=== PATIENT | male | born 1940 | race Caucasian/White ===

== ENCOUNTER → 2016-10-18 | Outpatient (CLI) | payer OTHER, BC ==
[~2016-10-18] MED LIST: ACYCLOVIR400 MG PO; ADVIL,NUPRIN,M200 MG PO; ADVIL200 MG PO; ALLOPURINOL300 MG PO; ASPIR-LOW81 MG PO; ATORVASTATIN CA20 MG PO; CIPRO750 MG PO; CLARITIN,ALAVAR10 MG PO; CLONAZEPAM0.5 MG PO; CLONIDINE HCL0.1 MG PO; COMPAZINE10 MG PO; CONSTULOSE10 GM/15 M PO; DELTASONE20 M1 PO; DOCUSATE SODIU100 MG PO; FINASTERIDE5 MG PO; FLOMAX0.4 MG PO; HYDROMORPHONE HC2 MG PO; IBUPROFEN200 M1 PO; KLOR-CON M2020 MEQ PO; LIPITOR20 MG PO; LIPITOR5 MG PO; LISINOPRIL20 MG PO; MUCINEX600 MG PO; NAPROXEN500 MG PO; POTASSIUM CHLO10 ME3 PO; PREDNISONE2.5 MG PO; PREDNISONE20 MG PO; PROCHLORPERAZIN10 MG PO; PROMETHAZI6.25 MG/5 PO; PROSCAR5 MG PO; REGULOID0.52 GM PO; SENNA CONCENTR8.6 MG PO; SENNA8.6 MG PO; XARELTO15 MG PO; XARELTO20 MG PO; ZYDELIG150 MG PO
== END | disposition home or self-care (01) ==
LOC: OPR 07:28 → EDSTATUS 07:30
PROC: 3E0L3GC Introduction of Other Therapeutic Substance into Pleural Cavity, Percutaneous Approach (ICD-10-PCS; principal; 2016-10-18)
DX: J90 Pleural effusion, not elsewhere classified (principal); C85.90 Non-Hodgkin lymphoma, unspecified, unspecified site; K59.09 Other constipation; M25.512 Pain in left shoulder
CPT/HCPCS: J3010; J7050

== ENCOUNTER → 2016-11-03 | Outpatient (CLI) | payer OTHER, BC | END | disposition home or self-care (01) | LOC: OPR 11-02 09:00 → EDSTATUS 09:00 → OPR 09:00 | DX: C85.90 Non-Hodgkin lymphoma, unspecified, unspecified site (principal); J90 Pleural effusion, not elsewhere classified; Z87.891 Personal history of nicotine dependence | CPT/HCPCS: J3010 ==

== ENCOUNTER 2017-01-01 10:12 | Inpatient (IN) | payer OTHER, BC ==
[~2017-01-01] VITALS: Ht 177.8 cm; Wt 84.0 kg
[2017-01-01 12:14] LABS: INFLUENZA A VIRAL ANTIGEN NEGATIVE; INFLUENZA B VIRAL ANTIGEN NEGATIVE
[2017-01-01 12:22] LABS: HEMATOCRIT 28.6 % (38.0-50.0); MCH 28.7 PG (29.0-34.0); MCHC 33.9 G/DL (30.0-36.0); MCV 84.6 FL (86-99); MEAN PLAT.VOLUME 10.3 uM^3 (9.0-12.4); PLATELET COUNT 179 K/uL (156-360); RBC DIS.WIDTH-CV 13.8 % (11.8-14.6); RBC DIS.WIDTH-SD 42.9 % (39-53); RED BLOOD COUNT 3.38 M/uL (4.00-5.50)
[2017-01-01 12:23] LABS: CHLORIDE 104 mEq/L (99-109); POTASSIUM 3.2 mEq/L (3.7-5.4); SODIUM 135 mEq/L (136-147)
[2017-01-01 12:25] LABS: GLUCOSE 101 mg/dL (70-99)
[2017-01-01 12:26] LABS: ANION GAP 12 MEQ/L (2-14)
[2017-01-01 12:27] LABS: TOTAL BILIRUBIN 1.2 mg/dL (0.0-1.0)
[2017-01-01 12:29] LABS: ALKALINE PHOSPHATASE 33 IU/L (3-129); GFR ESTIMATE (CALCULATED) 25 mL/min/
[2017-01-01 12:30] LABS: UREA NITROGEN (BUN) 27 mg/dL (9-23)
[2017-01-01 12:32] LABS: ADD MIUA? YES; BILIRUBIN NEGATIVE; BLOOD SMALL; COLOR YELLOW ((YELLOW)); GLUCOSE (STRIP) 50; KETONES NEGATIVE; LEUKOCYTES NEGATIVE; NITRITE NEGATIVE; PROTEIN (STRIP) 100; SPECIFIC GRAVITY 1.016 (1.000-1.030); UROBILINOGEN 0.2 MG/DL (0.2-1.0)
[2017-01-01 12:45] LABS: BACTERIA RARE /HPF; CALCIUM OXALATE CRYSTALS 1+ /HPF; EPITHELIAL CELLS RARE /HPF; MUCUS TRACE /LPF; RED BLOOD CELLS 0-5 /HPF (0-5); UCUL ADDED? NO; WHITE BLOOD CELLS 0-5 /HPF (0-5)
[2017-01-01 12:47] LABS: MAGNESIUM 1.8 mg/dL (1.3-2.7)
[2017-01-01 13:53] LABS: WHITE BLOOD COUNT 0.8 K/uL (4.1-10.2)
[2017-01-01 18:11] VITALS: BP 182/80
[2017-01-01 19:29] VITALS: BP 154/74
[2017-01-01 22:25] VITALS: BP 188/80
[2017-01-02] VITALS (11 sets, daily range): BP systolic 138–176; BP diastolic 64–78
[2017-01-02 07:12] LABS: OVALOCYTES 1+; PLAT.SUFFICIENCY ADEQUATE; POIKILOCYTOSIS 1+; POLYCHROMASIA 1+
[2017-01-02 07:17] LABS: ANION GAP 10 MEQ/L (2-14); CHLORIDE 108 MEQ/L (99-109); GFR ESTIMATE (CALCULATED) 26 mL/min/; GLUCOSE 84 mg/dL (70-99); POTASSIUM 3.6 MEQ/L (3.7-5.4); SAMPLE HEMOLYSIS CHECK 0; SAMPLE ICTERIC CHECK 0; SAMPLE LIPEMIA CHECK 0; SODIUM 140 MEQ/L (136-147); UREA NITROGEN (BUN) 27 mg/dL (9-23)
[2017-01-02 07:20] LABS: ALKALINE PHOSPHATASE 29 IU/L (3-129); ANION GAP 9 MEQ/L (2-14); CHLORIDE 109 MEQ/L (99-109); GFR ESTIMATE (CALCULATED) 26 mL/min/; GLUCOSE 83 mg/dL (70-99); POTASSIUM 3.5 MEQ/L (3.7-5.4); SAMPLE HEMOLYSIS CHECK 0; SAMPLE ICTERIC CHECK 0; SAMPLE LIPEMIA CHECK 0; SODIUM 140 MEQ/L (136-147); TOTAL BILIRUBIN 0.8 MG/DL (0.0-1.0); UREA NITROGEN (BUN) 27 mg/dL (9-23)
[2017-01-02 08:54] LABS: ABS NEUTROPHIL COUNT 0.2; ATYPICAL LYMPHOCYTE 2.4 %; BAND NEUTROPHILS 4.8 % (0-8.0); EOSINOPHIL ABS CT 0.2; EOSINOPHILS 16.9 % (0-5.0); INSTRUMENT ABS NEUTROPHIL CT 0.1 K/uL; LYMPHOCYTES 21.7 % (15.0-45.0); MCH 28.9 PG (29.0-34.0); MCHC 33.3 G/DL (30.0-36.0); MCV 86.6 FL (86-99); MEAN PLAT.VOLUME 9.8 uM^3 (9.0-12.4); PLATELET COUNT 153 K/uL (156-360); RBC DIS.WIDTH-SD 43.8 % (39-53); RED BLOOD COUNT 2.77 M/uL (4.00-5.50); SEG.NEUTROPHILS 10.8 % (46.0-76.0); WHITE BLOOD COUNT 1.4 K/uL (4.1-10.2)
[2017-01-02 15:15] LABS: ANION GAP 9 MEQ/L (2-14); CHLORIDE 106 MEQ/L (99-109); POTASSIUM 3.3 MEQ/L (3.7-5.4); SAMPLE HEMOLYSIS CHECK 0; SAMPLE ICTERIC CHECK 0; SAMPLE LIPEMIA CHECK 0; SODIUM 137 MEQ/L (136-147)
[2017-01-02 15:21] LABS: GFR ESTIMATE (CALCULATED) 27 mL/min/; GLUCOSE 109 mg/dL (70-99); UREA NITROGEN (BUN) 27 mg/dL (9-23); URIC ACID 4.5 mg/dL (3.1-9.2)
[2017-01-03] VITALS (7 sets, daily range): BP systolic 132–190; BP diastolic 62–89
[2017-01-03 01:06] LABS: TROP-I INTERPRETATION NEGATIVE; TROPONIN-I < 0.01 ng/mL (0.0-0.30)
[2017-01-03 06:28] LABS: TROP-I INTERPRETATION NEGATIVE; TROPONIN-I 0.02 ng/mL (0.0-0.30)
[2017-01-03 06:36] LABS: ALKALINE PHOSPHATASE 32 IU/L (3-129); ANION GAP 11 MEQ/L (2-14); CHLORIDE 108 MEQ/L (99-109); GFR ESTIMATE (CALCULATED) 24 mL/min/; GLUCOSE 106 mg/dL (70-99); POTASSIUM 3.6 MEQ/L (3.7-5.4); SAMPLE HEMOLYSIS CHECK 0; SAMPLE ICTERIC CHECK 0; SAMPLE LIPEMIA CHECK 0; SODIUM 141 MEQ/L (136-147); TOTAL BILIRUBIN 0.8 MG/DL (0.0-1.0); UREA NITROGEN (BUN) 27 mg/dL (9-23)
[2017-01-03 06:36] LABS: ANION GAP 9 MEQ/L (2-14); CHLORIDE 108 MEQ/L (99-109); GFR ESTIMATE (CALCULATED) 25 mL/min/; GLUCOSE 105 mg/dL (70-99); POTASSIUM 3.6 MEQ/L (3.7-5.4); SAMPLE HEMOLYSIS CHECK 0; SAMPLE ICTERIC CHECK 0; SAMPLE LIPEMIA CHECK 0; SODIUM 140 MEQ/L (136-147); UREA NITROGEN (BUN) 27 mg/dL (9-23)
[2017-01-03 06:41] LABS: HEMATOCRIT 29.8 % (38.0-50.0); MCH 27.8 PG (29.0-34.0); MCHC 32.9 G/DL (30.0-36.0); MCV 84.7 FL (86-99); MEAN PLAT.VOLUME 9.7 uM^3 (9.0-12.4); PLATELET COUNT 159 K/uL (156-360); RBC DIS.WIDTH-CV 14.6 % (11.8-14.6); RBC DIS.WIDTH-SD 44.7 % (39-53)
[2017-01-03 07:13] LABS: RED BLOOD COUNT 3.52 M/uL (4.00-5.50); WHITE BLOOD COUNT 2.1 K/uL (4.1-10.2)
[2017-01-03 07:18] LABS: ABS NEUTROPHIL COUNT 0.7; ANISOCYTOSIS 1+; ATYPICAL LYMPHOCYTE 7.5 %; BAND NEUTROPHILS 1.3 % (0-8.0); BURR CELLS 1+; EOSINOPHIL ABS CT 0.3; EOSINOPHILS 12.5 % (0-5.0); INSTRUMENT ABS NEUTROPHIL CT 0.4 K/uL; LYMPHOCYTES 16.2 % (15.0-45.0); METAMYELOCYTES 2.5 %; MICROCYTOSIS 1+; PLAT.SUFFICIENCY ADEQUATE; POIKILOCYTOSIS 2+; TEAR DROP CELLS 1+
[2017-01-03 07:34] LABS: SEG.NEUTROPHILS 32.5 % (46.0-76.0)
[2017-01-03 12:35] LABS: TROP-I INTERPRETATION NEGATIVE; TROPONIN-I < 0.01 ng/mL (0.0-0.30)
[2017-01-04 03:26] VITALS: BP 135/62
[2017-01-04 06:47] LABS: ANION GAP 8 MEQ/L (2-14); CHLORIDE 105 MEQ/L (99-109); GFR ESTIMATE (CALCULATED) 24 mL/min/; GLUCOSE 97 mg/dL (70-99); POTASSIUM 3.5 MEQ/L (3.7-5.4); SAMPLE HEMOLYSIS CHECK 0; SAMPLE ICTERIC CHECK 0; SAMPLE LIPEMIA CHECK 0; SODIUM 138 MEQ/L (136-147); UREA NITROGEN (BUN) 23 mg/dL (9-23)
[2017-01-04 06:48] LABS: ALKALINE PHOSPHATASE 35 IU/L (3-129); ANION GAP 8 MEQ/L (2-14); CHLORIDE 105 MEQ/L (99-109); GFR ESTIMATE (CALCULATED) 24 mL/min/; GLUCOSE 95 mg/dL (70-99); POTASSIUM 3.5 MEQ/L (3.7-5.4); SAMPLE HEMOLYSIS CHECK 0; SAMPLE ICTERIC CHECK 0; SAMPLE LIPEMIA CHECK 0; SODIUM 138 MEQ/L (136-147); TOTAL BILIRUBIN 0.7 MG/DL (0.0-1.0); UREA NITROGEN (BUN) 24 mg/dL (9-23)
[2017-01-04 06:51] LABS: HEMATOCRIT 30.1 % (38.0-50.0); MCH 28.3 PG (29.0-34.0); MCHC 33.6 G/DL (30.0-36.0); MCV 84.3 FL (86-99); MEAN PLAT.VOLUME 10.2 uM^3 (9.0-12.4); PLATELET COUNT 164 K/uL (156-360); RBC DIS.WIDTH-CV 14.6 % (11.8-14.6); RED BLOOD COUNT 3.57 M/uL (4.00-5.50)
[2017-01-04 06:54] LABS: WHITE BLOOD COUNT 4.9 K/uL (4.1-10.2)
[2017-01-04 07:20] VITALS: BP 117/56
[2017-01-04 07:31] LABS: ABS NEUTROPHIL COUNT 2.6; ANISOCYTOSIS 1+; BAND NEUTROPHILS 8.8 % (0-8.0); EOSINOPHIL ABS CT 0.3; EOSINOPHILS 7.1 % (0-5.0); INSTRUMENT ABS NEUTROPHIL CT 1.9 K/uL; LYMPHOCYTES 13.3 % (15.0-45.0); METAMYELOCYTES 0.9 %; MYELOCYTES 2.6 %; OVALOCYTES 1+; PLAT.SUFFICIENCY ADEQUATE; POIKILOCYTOSIS 1+; SEG.NEUTROPHILS 44.3 % (46.0-76.0)
[2017-01-04 11:04] LABS: UR CREATININE CONCENTRATION 43.2 MG/DL
[2017-01-04 12:27] VITALS: BP 148/67
[2017-01-04 17:08] VITALS: BP 146/65
[2017-01-04 20:02] VITALS: BP 111/61
[2017-01-04 23:49] VITALS: BP 122/68
[2017-01-05 07:24] LABS: HEMATOCRIT 30.4 % (38.0-50.0); MCH 27.6 PG (29.0-34.0); MCHC 32.6 G/DL (30.0-36.0); MCV 84.7 FL (86-99); NRBC (%) 0.3 /100 WBC (0-0); RBC DIS.WIDTH-CV 14.8 % (11.8-14.6); RBC DIS.WIDTH-SD 45.7 % (39-53); RED BLOOD COUNT 3.59 M/uL (4.00-5.50)
[2017-01-05 07:25] LABS: WHITE BLOOD COUNT 6.7 K/uL (4.1-10.2)
[2017-01-05 07:30] LABS: ANION GAP 11 MEQ/L (2-14); CHLORIDE 103 MEQ/L (99-109); GFR ESTIMATE (CALCULATED) 24 mL/min/; GLUCOSE 132 mg/dL (70-99); POTASSIUM 4.1 MEQ/L (3.7-5.4); SAMPLE HEMOLYSIS CHECK 0; SAMPLE ICTERIC CHECK 0; SAMPLE LIPEMIA CHECK 0; SODIUM 138 MEQ/L (136-147); UREA NITROGEN (BUN) 25 mg/dL (9-23)
[2017-01-05 07:31] VITALS: BP 143/66
[2017-01-05 07:40] LABS: ALKALINE PHOSPHATASE 40 IU/L (3-129); ANION GAP 11 MEQ/L (2-14); CHLORIDE 103 MEQ/L (99-109); GFR ESTIMATE (CALCULATED) 24 mL/min/; GLUCOSE 131 mg/dL (70-99); POTASSIUM 4.1 MEQ/L (3.7-5.4); SAMPLE HEMOLYSIS CHECK 0; SAMPLE ICTERIC CHECK 0; SAMPLE LIPEMIA CHECK 0; SODIUM 138 MEQ/L (136-147); UREA NITROGEN (BUN) 25 mg/dL (9-23)
[2017-01-05 07:41] LABS: TOTAL BILIRUBIN 0.5 MG/DL (0.0-1.0)
[2017-01-05 07:50] LABS: ABS NEUTROPHIL COUNT 5.4; EOSINOPHIL ABS CT 0; INSTRUMENT ABS NEUTROPHIL CT 4.3 K/uL; MEAN PLAT.VOLUME 10.9 uM^3 (9.0-12.4); OVALOCYTES 1+; PLAT.SUFFICIENCY ADEQUATE; PLATELET COUNT 178 K/uL (156-360)
[2017-01-05 10:54] VITALS: BP 162/72
[2017-01-05 17:11] VITALS: BP 138/71
[2017-01-05 18:26] VITALS: BP 146/67
[2017-01-06] VITALS: BP 137/67
[2017-01-06 03:14] VITALS: BP 130/62
[2017-01-06 06:55] LABS: HEMATOCRIT 31.2 % (38.0-50.0); MCHC 32.4 G/DL (30.0-36.0); MCV 86.4 FL (86-99); MEAN PLAT.VOLUME 10.2 uM^3 (9.0-12.4); NRBC (%) 0.4 /100 WBC (0-0); PLATELET COUNT 178 K/uL (156-360); RBC DIS.WIDTH-SD 48.1 % (39-53); RED BLOOD COUNT 3.61 M/uL (4.00-5.50); WHITE BLOOD COUNT 8.5 K/uL (4.1-10.2)
[2017-01-06 07:02] LABS: ANION GAP 7 MEQ/L (2-14); CHLORIDE 103 MEQ/L (99-109); GFR ESTIMATE (CALCULATED) 24 mL/min/; GLUCOSE 108 mg/dL (70-99); POTASSIUM 3.9 MEQ/L (3.7-5.4); SAMPLE HEMOLYSIS CHECK 0; SAMPLE ICTERIC CHECK 0; SAMPLE LIPEMIA CHECK 0; SODIUM 140 MEQ/L (136-147); UREA NITROGEN (BUN) 29 mg/dL (9-23)
[2017-01-06 08:41] VITALS: BP 124/74
[2017-01-06 09:04] LABS: ABS NEUTROPHIL COUNT 5.5; ANISOCYTOSIS 1+; ATYPICAL LYMPHOCYTE 0.9 %; BAND NEUTROPHILS 2.7 % (0-8.0); EOSINOPHIL ABS CT 0.1; EOSINOPHILS 0.9 % (0-5.0); INSTRUMENT ABS NEUTROPHIL CT 4.9 K/uL; METAMYELOCYTES 6.3 %; MICROCYTOSIS 1+; OVALOCYTES 1+; PLAT.SUFFICIENCY ADEQUATE; POIKILOCYTOSIS 2+; SEG.NEUTROPHILS 62.5 % (46.0-76.0)
[2017-01-06] MEDS ORDERED: NIFEDIPINE ER30 MG PO (11:30)
[2017-01-06] MEDS ORDERED: FINASTERIDE5 MG PO (11:30)
[2017-01-06 12:05] VITALS: BP 127/60
[2017-01-06 16:24] LABS: UR CREATININE CONCENTRATION 46.3 MG/DL
[2017-01-08 21:53] LABS: Neutrophil Cytoplasmic Aby Negative (Negative)
== END 2017-01-06 16:06 | disposition home or self-care (01) | DRG 669 ==
LOC: EME → EDBD 10:12 → 5EAST 15:04 → EDOF 15:04 → 5EAST 17:54
PROVIDERS: Emergency Medicine; Family Medicine; Hospitalist; Internal Medicine; Internal Medicine Nephrology; Urology
DX: N13.2 Hydronephrosis with renal and ureteral calculous obstruction (principal); N17.9 Acute kidney failure, unspecified; R33.8 Other retention of urine; C85.90 Non-Hodgkin lymphoma, unspecified, unspecified site; E87.2 Acidosis; E87.1 Hypo-osmolality and hyponatremia; N40.1 Benign prostatic hyperplasia with lower urinary tract symptoms; E78.00 Pure hypercholesterolemia, unspecified; D70.9 Neutropenia, unspecified; R55 Syncope and collapse; E87.70 Fluid overload, unspecified; E86.0 Dehydration; I10 Essential (primary) hypertension; D64.9 Anemia, unspecified; E87.6 Hypokalemia; Z86.711 Personal history of pulmonary embolism; Z86.73 Personal history of transient ischemic attack (TIA), and cerebral infarction without residual deficits; K59.00 Constipation, unspecified
CPT/HCPCS: 71010; 74176; 74420; 76770; 80048; 80053; 80069; 81003; 81050; 82365 90; 82570; 83605; 83735; 83880; 84100; 84156; 84484; 84550; 85009; 85025; 85027; 86021 90; 86850; 86900; 86901; 86920; 87040; 87086; 87502; 93005; 93306; 99281; 99285; C1769; C1876; J1447; J1644; J1940; J3480; J7030; J7120; P9016

== ENCOUNTER 2017-02-16 14:05 | Inpatient (IN) | payer OTHER, BC ==
[~2017-02-16] VITALS: Ht 177.8 cm; Wt 79.7 kg
[~2017-02-16 14:05] MED LIST changes: +NIFEDIPINE ER30 MG PO
[2017-02-16] MEDS ORDERED: XARELTO20 MG PO (15:17)
[2017-02-16 16:36] LABS: HEMATOCRIT 24.4 % (38.0-50.0); MCH 28.6 PG (29.0-34.0); MCHC 33.2 G/DL (30.0-36.0); MCV 86.2 FL (86-99); MEAN PLAT.VOLUME 10.2 uM^3 (9.0-12.4); RBC DIS.WIDTH-CV 15.8 % (11.8-14.6); RBC DIS.WIDTH-SD 49.7 % (39-53)
[2017-02-16 16:48] LABS: PLATELET COUNT 158 K/uL (156-360); RED BLOOD COUNT 2.83 M/uL (4.00-5.50); WHITE BLOOD COUNT 2.7 K/uL (4.1-10.2)
[2017-02-16 16:49] LABS: CHLORIDE 104 mEq/L (99-109); POTASSIUM 3.7 mEq/L (3.7-5.4); SODIUM 133 mEq/L (136-147)
[2017-02-16 16:50] LABS: GLUCOSE 96 mg/dL (70-99)
[2017-02-16 16:52] LABS: ANION GAP 11 MEQ/L (2-14)
[2017-02-16 16:54] LABS: GFR ESTIMATE (CALCULATED) 23 mL/min/
[2017-02-16 16:56] LABS: UREA NITROGEN (BUN) 50 mg/dL (9-23)
[2017-02-16 17:42] LABS: ABS NEUTROPHIL COUNT 2.4; ANISOCYTOSIS 1+; BAND NEUTROPHILS 3.5 % (0-8.0); EOSINOPHIL ABS CT 0; EOSINOPHILS 0.9 % (0-5.0); HEMATOLOGY COMMENT 1 SN; INSTRUMENT ABS NEUTROPHIL CT 1.6 K/uL; LYMPHOCYTES 3.5 % (15.0-45.0); METAMYELOCYTES 1.8 %; OVALOCYTES 1+; PLAT.SUFFICIENCY ADEQUATE; POIKILOCYTOSIS 1+; SEG.NEUTROPHILS 86.8 % (46.0-76.0)
[2017-02-16] MEDS ORDERED: NIFEDIPINE ER30 MG PO (17:44)
[2017-02-16] MEDS ORDERED: FINASTERIDE5 MG PO (17:45)
[2017-02-16] MEDS ORDERED: DEXAMETHASO4 MG/1 ML IV (17:46)
[2017-02-16] MEDS ORDERED: ALOXI0.25 MG/5 IV (17:46)
[2017-02-16] MEDS ORDERED: DEXAMETHAS10 MG/1 M1 IV (17:47)
[2017-02-16] MEDS ORDERED: GEMCITABINE IV ×3 (17:49→18:06)
[2017-02-16] MEDS ORDERED: NEULASTA6 MG/0.6 M SC (17:54)
[2017-02-16] MEDS ORDERED: OXALIPLATI100 MG/20 IV (17:54)
[2017-02-16 20:05] VITALS: BP 141/65
[2017-02-16 21:25] VITALS: BP 142/65
[2017-02-16 21:40] VITALS: BP 133/63
[2017-02-16 22:25] VITALS: BP 129/64
[2017-02-16 23:24] VITALS: BP 145/65
[2017-02-16 23:49] VITALS: BP 145/65
[2017-02-17] VITALS (8 sets, daily range): BP systolic 100–121; BP diastolic 51–58
[2017-02-17 02:36] LABS: HEMATOCRIT 24.9 % (38.0-50.0); MCV 86.8 FL (86-99)
[2017-02-17 10:32] LABS: ALKALINE PHOSPHATASE 37 IU/L (3-129); ANION GAP 13 MEQ/L (2-14); CHLORIDE 109 MEQ/L (99-109); GFR ESTIMATE (CALCULATED) 25 mL/min/; GLUCOSE 111 mg/dL (70-99); POTASSIUM 3.6 MEQ/L (3.7-5.4); SAMPLE HEMOLYSIS CHECK 0; SAMPLE ICTERIC CHECK 0; SAMPLE LIPEMIA CHECK 0; SODIUM 139 MEQ/L (136-147); TOTAL BILIRUBIN 0.9 MG/DL (0.0-1.0); UREA NITROGEN (BUN) 43 mg/dL (9-23)
[2017-02-17 10:40] LABS: HEMATOCRIT 29.3 % (38.0-50.0); MCH 29.1 PG (29.0-34.0); MCHC 33.1 G/DL (30.0-36.0); MEAN PLAT.VOLUME 10.4 uM^3 (9.0-12.4); PLATELET COUNT 132 K/uL (156-360); RBC DIS.WIDTH-CV 15.6 % (11.8-14.6); RBC DIS.WIDTH-SD 49.8 % (39-53); RED BLOOD COUNT 3.33 M/uL (4.00-5.50)
[2017-02-17 14:37] LABS: ADD MIUA? YES; BILIRUBIN NEGATIVE; BLOOD MODERATE; COLOR AMBER ((YELLOW)); GLUCOSE (STRIP) 50; KETONES NEGATIVE; LEUKOCYTES LARGE; PROTEIN (STRIP) 100; SPECIFIC GRAVITY 1.013 (1.000-1.030); UROBILINOGEN 0.2 MG/DL (0.2-1.0)
[2017-02-17 14:57] LABS: RED BLOOD CELLS TNTC /HPF (0-5)
[2017-02-17 14:58] LABS: BACTERIA 4+ /HPF; EPITHELIAL CELLS NONE SEEN /HPF; MUCUS NONE SEEN /LPF; UCUL ADDED? YES
[2017-02-17 14:59] LABS: NITRITE POSITIVE
[2017-02-18 06:15] LABS: HEMATOCRIT 27.1 % (38.0-50.0); MCH 28.3 PG (29.0-34.0); MCHC 32.8 G/DL (30.0-36.0); MCV 86.3 FL (86-99); MEAN PLAT.VOLUME 10.5 uM^3 (9.0-12.4); PLATELET COUNT 112 K/uL (156-360); RBC DIS.WIDTH-CV 15.8 % (11.8-14.6); RBC DIS.WIDTH-SD 49.9 % (39-53); RED BLOOD COUNT 3.14 M/uL (4.00-5.50); WHITE BLOOD COUNT 2.5 K/uL (4.1-10.2)
[2017-02-18 06:29] LABS: ANION GAP 9 MEQ/L (2-14); CHLORIDE 106 MEQ/L (99-109); GFR ESTIMATE (CALCULATED) 26 mL/min/; GLUCOSE 95 mg/dL (70-99); POTASSIUM 3.5 MEQ/L (3.7-5.4); SAMPLE HEMOLYSIS CHECK 0; SAMPLE ICTERIC CHECK 0; SAMPLE LIPEMIA CHECK 0; SODIUM 135 MEQ/L (136-147); UREA NITROGEN (BUN) 37 mg/dL (9-23)
[2017-02-18 06:32] VITALS: BP 113/58
[2017-02-18 08:10] LABS: ABS NEUTROPHIL COUNT 2.2; ATYPICAL LYMPHOCYTE 0.9 %; BAND NEUTROPHILS 7.9 % (0-8.0); BASOPHILS 0.9 %; BURR CELLS 1+; EOSINOPHIL ABS CT 0; INSTRUMENT ABS NEUTROPHIL CT 1.9 K/uL; LYMPHOCYTES 3.5 % (15.0-45.0); METAMYELOCYTES 2.6 %; MYELOCYTES 0.9 %; OVALOCYTES 1+; PLAT.SUFFICIENCY DECREASED; POIKILOCYTOSIS 2+; SEG.NEUTROPHILS 79.8 % (46.0-76.0)
[2017-02-18 10:35] VITALS: BP 107/54
[2017-02-18 12:17] VITALS: BP 124/60
[2017-02-18 14:19] VITALS: BP 130/75
[2017-02-18 16:39] VITALS: BP 113/57
[2017-02-18 18:48] LABS: UR CREATININE CONCENTRATION 32.5 MG/DL
[2017-02-18 22:26] VITALS: BP 114/71
[2017-02-19 06:45] VITALS: BP 132/62
[2017-02-19 09:22] LABS: ANION GAP 10 MEQ/L (2-14); CHLORIDE 104 MEQ/L (99-109); GFR ESTIMATE (CALCULATED) 26 mL/min/; GLUCOSE 114 mg/dL (70-99); POTASSIUM 3.3 MEQ/L (3.7-5.4); SAMPLE HEMOLYSIS CHECK 0; SAMPLE ICTERIC CHECK 0; SAMPLE LIPEMIA CHECK 0; SODIUM 134 MEQ/L (136-147); UREA NITROGEN (BUN) 34 mg/dL (9-23)
[2017-02-19 09:34] LABS: HEMATOCRIT 31.4 % (38.0-50.0); MCH 29.7 PG (29.0-34.0); MCHC 34.4 G/DL (30.0-36.0); MCV 86.3 FL (86-99); RBC DIS.WIDTH-CV 15.7 % (11.8-14.6); RBC DIS.WIDTH-SD 49.9 % (39-53); RED BLOOD COUNT 3.64 M/uL (4.00-5.50)
[2017-02-19 09:35] LABS: WHITE BLOOD COUNT 3.5 K/uL (4.1-10.2)
[2017-02-19 10:24] LABS: ABS NEUTROPHIL COUNT 2.9; ANISOCYTOSIS 1+; EOSINOPHIL ABS CT 0.1; INSTRUMENT ABS NEUTROPHIL CT 2.5 K/uL; MEAN PLAT.VOLUME 10.1 uM^3 (9.0-12.4); PLAT.SUFFICIENCY DECREASED
[2017-02-19 10:30] LABS: PLATELET COUNT 76 K/uL (156-360)
[2017-02-19 14:56] VITALS: BP 135/64
[2017-02-19 23:32] VITALS: BP 133/62
[2017-02-20 07:12] VITALS: BP 144/72
[2017-02-20 07:37] LABS: HEMATOCRIT 32.5 % (38.0-50.0); MCH 29.3 PG (29.0-34.0); MCHC 33.8 G/DL (30.0-36.0); MCV 86.4 FL (86-99); MEAN PLAT.VOLUME 11.2 uM^3 (9.0-12.4); PLATELET COUNT 63 K/uL (156-360); RBC DIS.WIDTH-CV 15.9 % (11.8-14.6); RBC DIS.WIDTH-SD 50.4 % (39-53); RED BLOOD COUNT 3.76 M/uL (4.00-5.50); WHITE BLOOD COUNT 3.9 K/uL (4.1-10.2)
[2017-02-20 07:44] LABS: ANION GAP 8 MEQ/L (2-14); CHLORIDE 106 MEQ/L (99-109); GFR ESTIMATE (CALCULATED) 25 mL/min/; GLUCOSE 99 mg/dL (70-99); POTASSIUM 3.2 MEQ/L (3.7-5.4); SAMPLE HEMOLYSIS CHECK 0; SAMPLE ICTERIC CHECK 0; SAMPLE LIPEMIA CHECK 0; SODIUM 137 MEQ/L (136-147); UREA NITROGEN (BUN) 31 mg/dL (9-23)
[2017-02-20 08:49] LABS: ABS NEUTROPHIL COUNT 3.7; ANISOCYTOSIS 1+; EOSINOPHIL ABS CT 0.2; INSTRUMENT ABS NEUTROPHIL CT 2.6 K/uL
[2017-02-20 14:57] VITALS: BP 144/66
[2017-02-20 16:07] LABS: UR CREATININE CONCENTRATION 65.7 MG/DL
[2017-02-20 19:47] VITALS: BP 142/64
[2017-02-21 07:40] VITALS: BP 146/70
[2017-02-21 07:42] LABS: ANION GAP 10 MEQ/L (2-14); CHLORIDE 105 MEQ/L (99-109); GFR ESTIMATE (CALCULATED) 23 mL/min/; GLUCOSE 102 mg/dL (70-99); POTASSIUM 3.4 MEQ/L (3.7-5.4); SAMPLE HEMOLYSIS CHECK 0; SAMPLE ICTERIC CHECK 0; SAMPLE LIPEMIA CHECK 0; SODIUM 137 MEQ/L (136-147); UREA NITROGEN (BUN) 31 mg/dL (9-23)
[2017-02-21 07:56] LABS: HEMATOCRIT 32.1 % (38.0-50.0); MCHC 33.6 G/DL (30.0-36.0); MCV 86.3 FL (86-99); RBC DIS.WIDTH-CV 15.7 % (11.8-14.6); RBC DIS.WIDTH-SD 49.5 % (39-53); RED BLOOD COUNT 3.72 M/uL (4.00-5.50)
[2017-02-21 08:18] LABS: IMM.PLATELET FRACTION 3.2 (1-7); MEAN PLAT.VOLUME 9.9 uM^3 (9.0-12.4); PLAT.SUFFICIENCY DECREASED
[2017-02-21 08:22] LABS: PLATELET COUNT 41 K/uL (156-360)
[2017-02-21] MEDS ORDERED: CIPROFLOXACIN500 M1 PO (11:01)
[2017-02-21] MEDS ORDERED: ELIQUIS2.5 MG PO (11:02)
== END 2017-02-21 14:37 | disposition home or self-care (01) | DRG 699 ==
LOC: EME 14:05 → EDOF 18:43 → 5EAST 18:43
PROVIDERS: Emergency Medicine; Hospitalist; Internal Medicine; Internal Medicine Nephrology
PROC: 30243N1 Transfusion of Nonautologous Red Blood Cells into Central Vein, Percutaneous Approach (ICD-10-PCS; principal; 2017-02-16)
DX: T83.511A Infection and inflammatory reaction due to indwelling urethral catheter, initial encounter (principal); N39.0 Urinary tract infection, site not specified; J90 Pleural effusion, not elsewhere classified; D70.9 Neutropenia, unspecified; N17.9 Acute kidney failure, unspecified; D69.6 Thrombocytopenia, unspecified; N13.30 Unspecified hydronephrosis; C85.90 Non-Hodgkin lymphoma, unspecified, unspecified site; D64.9 Anemia, unspecified; I12.9 Hypertensive chronic kidney disease with stage 1 through stage 4 chronic kidney disease, or unspecified chronic kidney disease; N18.3 Chronic kidney disease, stage 3 (moderate); E87.6 Hypokalemia; E78.00 Pure hypercholesterolemia, unspecified; N40.1 Benign prostatic hyperplasia with lower urinary tract symptoms; R33.8 Other retention of urine; B96.1 Klebsiella pneumoniae [K. pneumoniae] as the cause of diseases classified elsewhere; Z86.73 Personal history of transient ischemic attack (TIA), and cerebral infarction without residual deficits; Z86.711 Personal history of pulmonary embolism; Z79.01 Long term (current) use of anticoagulants; Z92.21 Personal history of antineoplastic chemotherapy
CPT/HCPCS: 71020; 76770; 80048; 80053; 80069; 81003; 82570; 84156; 85014; 85018; 85025; 85027; 85730; 86900; 86901; 86920; 87040; 87077; 87086; 87186; 87801; 96375; 96377 XU; 96413; 96415; 96417; 99281; 99285; J0692; J0696; J1100; J2469; J2505; J7030; J7050; J9201; J9263; P9016